=== PATIENT | female | born 1970 | race Caucasian/White ===

== ENCOUNTER 2023-12-19 17:33 | Emergency (ER) | payer MEDICARE, SELFPAY ==
[2023-12-19 17:34] VITALS: BP 190/116
[2023-12-19 18:01] VITALS: BP 151/81
--- NOTE | 2023-12-19 18:53 | ED.GENMED ---
History of Present Illness
<Erica Singer PA-C - Last Filed: 12/20/23 01:44>
General
Chief Complaint: Blood Pressure Problem
Source: patient
Exam Limitations: none
Time Seen by Provider: 12/19/23 18:16
Nursing documentation reviewed up to this point in time: agreed with
Travel History
Have you had any contact with someone who has COVID-19?: No
Do you have any symptoms of coronavirus? Fever > 100 degrees, chills, cough, shortness of breath, sore throat, loss of taste or smell, muscle aches, or headache?: No
History of Present Illness
History of Present Illness:
Patient is a 53-year-old female presenting for evaluation of intermittent headaches and high blood pressure readings at home. Patient states she has had headaches intermittently over the past 2 weeks, located in the occipital region of scalp. Today
- she checked her BP while she was having the headache and noticed an elevated BP reading of 190s/150s and decided to come to the emergency department for evaluation. She states they are worse when she wakes up. These headaches at its worst are an
8 out of 10 in severity, and associated with blurry vision. No associated nausea, vomiting, chest pain, shortness of breath. No recent fever, chills, other viral illness.
Patient states that she has a history of migraines when she was a teenager. She also had a brief episode of frequent migraines following her second COVID vaccine�was briefly followed by neurology and took an antiepileptic.
Patient was diagnosed with pancreatic cancer in 2003�had partial removal of pancreas and splenectomy.
Past History
<Erica Singer PA-C - Last Filed: 12/20/23 01:44>
Past History
ED Past Medical History: Other (pancreatic CA 2004, tail of pancreas removed.full remission)
ED Past Surgical History: None
Social History
Tobacco: Non-smoker
Alcohol: None
Personal: Single
Living: with family
Employment: Retired
Phy Exam
<Erica Singer PA-C - Last Filed: 12/20/23 01:44>
Physical Exam
Physical Exam:
General: In no apparent distress, non-toxic
Vitals: Hypertensive, otherwise vital signs stable, afebrile
HEENT: Atraumatic, normocephalic, no tenderness to temporal region; pupils equal round and reactive to light bilaterally, extraocular muscles intact, no tenderness to TMJ protecting airway
Neck: Full ROM, no tenderness to C-spine or paracervical spinal muscles
Cardio: RRR, heart sounds normal
Lungs: Lungs clear with no wheezing, rales, or rhonchi
Abdomen: Soft, nontender; non distended
Extremities: No evidence of cyanosis or edema; strength 5/5 in upper and lower extremities
Neuro: Alert and oriented, speech normal, no focal neurological deficits, normal finger to nose, CN II-XII intact, sensation intact
Psych: Appropriate affect
Skin: Intact
Course
<Erica Singer PA-C - Last Filed: 12/20/23 01:44>
Orders/Labs/Results
Orders:
Orders
12/19/23 17:36
EKG [Electrocardiogram (*1)] Urgent
Reason for Study: Hypertension, Benign
EKG- Treatment ONCE
12/19/23 19:05
CT Head W/o Iv Contrast Urgent
Comment:
Reason For Exam: headache, htn
12/19/23 19:32
Complete Blood Count/With Diff Urgent
Comprehensive Metabolic Panel Urgent
Abnormal Lab Results
12/19/23
19:32
RBC 4.06 L 10^6/uL
(4.20-5.40)
MCH 31.3 H pg
(27.0-31.0)
Absolute Lymphs (auto) 3.8 H 10^3/uL
(1.2-3.4)
Absolute Monos (auto) 1.1 H 10^3/uL
(0.1-0.6)
Monocytes % 10.4 H %
(1.7-9.3)
Carbon Dioxide 31 H mmol/L
(22-30)
BUN 19 H mg/dl
(7-17)
12/19/23 19:32
12/19/23 19:32
Vital Signs
Initial and Last Documented VS:
Initial Vital Signs
Temp Pulse Resp BP Pulse Ox
98.8 F 52 16 190/116 98
12/19/23 17:34 12/19/23 17:34 12/19/23 17:34 12/19/23 17:34 12/19/23 17:34
Last Documented Vital Signs
Temp Pulse Resp BP Pulse Ox
98.8 F 55 15 156/83 96
12/19/23 17:34 12/19/23 20:15 12/19/23 20:15 12/19/23 20:00 12/19/23 20:00
<Cameron Queen MD - Last Filed: 12/19/23 20:39>
Orders/Labs/Results
Orders:
Orders
12/19/23 17:36
EKG [Electrocardiogram (*1)] Urgent
Reason for Study: Hypertension, Benign
EKG- Treatment ONCE
12/19/23 19:05
CT Head W/o Iv Contrast Urgent
Comment:
Reason For Exam: headache, htn
12/19/23 19:32
Complete Blood Count/With Diff Urgent
Comprehensive Metabolic Panel Urgent
Abnormal Lab Results
12/19/23
19:32
RBC 4.06 L 10^6/uL
(4.20-5.40)
MCH 31.3 H pg
(27.0-31.0)
Absolute Lymphs (auto) 3.8 H 10^3/uL
(1.2-3.4)
Absolute Monos (auto) 1.1 H 10^3/uL
(0.1-0.6)
Monocytes % 10.4 H %
(1.7-9.3)
Carbon Dioxide 31 H mmol/L
(22-30)
BUN 19 H mg/dl
(7-17)
12/19/23 19:32
12/19/23 19:32
Vital Signs
Initial and Last Documented VS:
Initial Vital Signs
Temp Pulse Resp BP Pulse Ox
98.8 F 52 16 190/116 98
12/19/23 17:34 12/19/23 17:34 12/19/23 17:34 12/19/23 17:34 12/19/23 17:34
Last Documented Vital Signs
Temp Pulse Resp BP Pulse Ox
98.8 F 55 15 156/83 96
12/19/23 17:34 12/19/23 20:15 12/19/23 20:15 12/19/23 20:00 12/19/23 20:00
<Erica Singer PA-C - Last Filed: 12/20/23 01:44>
MDM/Problems Addressed
Differential Diagnosis Includes:
migraine headache, tension headache, cluster headache, sinusitis, CVA, brain mass
MDM/Problems Addressed:
Patient is a 53 year old female presenting for evaluation of 2 weeks of intermittent occipital headaches with elevated blood pressure measurement of 190/150 earlier at home. Patient reports occasional blurry vision with headaches. No fever, neck
pain, weakness/ numbness, jaw pain, recent virus. Patient is asymptomatic at this time- denies headache. She is hypertensive on initial triage to 190/116 but on my assessment had BP of 150/70. Physical exam as documented above. No neurologic
deficits on exam. Given history of headache in associated with hypertension - will check CT head. Will check basic labs, EKG.
CBC and CMP without any clinically significant abnormalities. CT shows no acute intracranial process. EKG shows NSR without signs of ischemia.
Patient has remained asymptomatic with most recent blood pressure of 156/83- no indication of hypertensive emergency or need to acutely lower BP in emergency department. Patient stable for discharge with close return precautions. She will follow-up
with PCP and neurologist. All questions answered
Chronic conditions affecting care:
N/A
Acute Exacerbation and/or Progression of Chronic Illness:
Acutely hypertensive
<Erica Singer PA-C - Last Filed: 12/20/23 01:44>
*Radiology
Radiology exam reviewed: preliminary read by ED provider and radiology read reviewed
*Pulse Oximetry
Patient hypoxic: no
*EKG
EKG Intrepretation Date: 12/20/23
Interpretation: normal
Comparison EKG: no comparison EKG present
Heart Rate: 53
Rate: bradycardiac
Rhythm: sinus
Salix: normal axis
Interval: normal interval
QRS Pattern: normal QRS
Ischemia: no ischemia
*Critical Care Note
Total Time (30-74mins, 75-104mins- exclusive of procedures): Not Applicable
Data Reviewed
Review of Other/Old Records Reveals: Radiology Studies
Further Testing Considered But Not Given:
ESR - no pain over temporal arteries, do not suspect temporal arteritis
ED Attending Note
<Erica Singer PA-C - Last Filed: 12/20/23 01:44>
-
Portions of this chart may have been created with voice recognition software.� Occasional wrong word or��sound alike� substitutions may have occurred due to the inherent limitations of voice recognition software.
<Cameron Queen MD - Last Filed: 12/19/23 20:39>
ED Attending Note
Patient seen and examined by attending physician: Yes
ED Attending Note:
HPI: 53-year-old female with history as documented presents for evaluation of headaches and hypertension. Patient has had intermittent headaches for the past few weeks she describes occipital pressure sensation comes and goes. Today patient
decided to check her blood pressure during 1 such episode that was noted to be severely elevated to 190s and she came to the emergency be assessed. No nausea or vomiting. No visual changes or flashes/floaters. No neck pain. No focal weakness
numbness in extremities. She has seen a neurologist in the past for headaches that she had after her COVID-vaccine 2 years ago but has not seen anyone since. At time of assessment patient is headache free.
ROS: Positive for headache; negative for neck pain, fever, chills, nausea, vomiting, vision changes, speech changes, focal weakness or numbness of extremities
Physical exam:
General: Awake, alert, oriented x3; no acute distress
Head: Normocephalic, atraumatic
Eyes: Conjunctiva normal, EOMI, pupils equal round reactive to light bilaterally
Throat: Airway intact, handling secretions
Neck: Trachea midline, supple without meningismus
Lungs: Breathing comfortably no distress
Heart: Regular rate
Neuro: Cranial nerves intact 2 through 12, speech fluid without dysarthria aphasia, no limb ataxia, motor and sensory function intact proximally and distally upper and lower extremities
Skin: no rash
Extremities: Warm and well-perfused
Differential diagnosis: Tension headache, migraine headache, sinus headache, intracranial hemorrhage, brain mass
Medical decision makin-year-old female presents for evaluation of intermittent headaches for the past few weeks. Had a headache earlier today that was associated with significant hypertension which prompted ED visit today. Headache now
resolved. Blood pressure was elevated in triage greatly improved on my assessment but still mildly hypertensive. Physical exam as above. Labs were sent off including CBC and CMP which were unremarkable and EKG showed no concerning abnormalities.
CT head negative for any acute pathology. Patient headache free, blood pressure improved, stable for discharge could be a tension headache or migraine headache. She has seen a neurologist in the past plans to follow-up with them regarding her
intermittent headaches over the past few weeks. Will discuss with her primary regarding blood pressure recheck and monitor blood pressure at home. Spoke about return precautions all questions answered.
Chronic conditions affecting care: N/A
Acute exacerbation or progression of chronic illness: Acutely hypertensive�no signs or symptoms of hypertensive emergency no indication for emergent antihypertensive treatment
History source: Patient
Data reviewed: N/A
Medications/testing considered: Considered prescription for antihypertensive such as lisinopril or amlodipine however patient reports that when she does not have her headache her blood pressure essentially normalizes and concern that starting
antihypertensive could lead to adverse effects�decided in favor of close monitoring of blood pressure outpatient and following up with PCP to decide if adding antihypertensive appropriate
Social determinants of health: N/A
Discussion with other providers: N/A
Discharge Plan
Departure
Patient Disposition: Home (Routine Discharge)
Date of Disposition: 12/19/23
Time of Disposition: 20:23
Patient with high blood pressure during this ER visit?: Yes
Condition: Good
Covid-19: Not Applicable
Discharge Problem:
Headache, Hypertension
Instructions: High Blood Pressure (DC), Headache, Adult (DC)
Prescriptions:
No Action
multivitamin Tablet
1 tab PO DAILY
oxybutynin chloride 10 mg Tablet Extended Release 24hr
10 mg PO DAILY
tamsulosin 0.4 mg Capsule
0.4 mg PO HS
Excedrin Extra Strength 250-250-65 mg Tablet
1 tab PO Q6H PRN (Reason: pain)
acetaminophen 500 mg Capsule
1,000 mg PO Q6H PRN (Reason: pain)
melatonin 5 mg Tablet
5 mg PO HS
Elderberry
1 tab PO DAILY
Vitamin C
1 tab PO DAILY
Vitamin D3
1 tab PO DAILY
mecobalamin (vitamin B12)
1 tab PO DAILY
Referrals:
Greg Bourgeois, [Family Provider] -
Activity Restrictions/Additional Instructions:
- Return to the emergency department with any severe headache, high fevers, severe neck pain, intractable vomiting, confusion/change in mental status, weakness/numbness, changes in vision, worsening current symptoms, or any other concerns
-You can take ibuprofen/Tylenol as needed for headache
-As discussed�you should follow-up with your neurologist for further evaluation/treatment
Interventions
Interventions:
*Risk Screen - Suicide Last Done: 12/19/23 17:34
*General Assessment Last Done: 12/19/23 17:34
*Neglect/Abuse Screening Last Done: 12/19/23 17:34
ED- Fall Risk Assessment Last Done: 12/19/23 18:02
*ED COVID-19 Vaccine History Last Done: 12/19/23 17:34
*Nursing Disposition Last Done: 12/19/23 20:28
ED- Cardiac Assessment Last Done: 12/19/23 18:02
ED- Neurological Assessment Last Done: 12/19/23 18:02
ED- Pulmonary Assessment Last Done: 12/19/23 18:02
Discharge Date and Time
Discharge Date/Time: 12/19/23 20:31
[2023-12-19 19:14] VITALS: BP 139/79
[2023-12-19 19:37] VITALS: BP 165/100
[2023-12-19 19:43] LABS: % Basophils 0.7 % (0-2); % Eosinophils 1.5 % (0-6); % Immature Granulocytes 0.3 % (0-0.5); % Lymphocytes 35.7 % (20.5-51.1); % Monocytes 10.4 % (1.7-9.3); % Neutrophils 51.4 % (42.2-75.2); Absolute Basophils 0.1 10^3/uL (0-0.2); Absolute Eosinophils 0.2 10^3/uL (0-0.7); Absolute Lymphocytes 3.8 10^3/uL (1.2-3.4); Absolute Monocytes 1.1 10^3/uL (0.1-0.6); Absolute Neutrophils 5.5 10^3/uL (1.4-6.5); Hematocrit 38.2 % (37.0-47.0); Hemoglobin 12.7 g/dL (12.0-16.0); Mean Corp Hgb Conc. 33.2 g/dL (33.0-37.0); Mean Corpuscular Hgb 31.3 pg (27.0-31.0); Mean Corpuscular Volume 94.1 fL (81.0-99.0); Nucleated Red Blood Cells % 0 %; Platelet Count 323 10^3/uL (130-400); Red Blood Cell Count 4.06 10^6/uL (4.20-5.40); White Blood Cell Count 10.8 10^3/uL (4.8-10.8)
[2023-12-19 20:00] VITALS: BP 156/83
[2023-12-19 20:09] LABS: ALT (SGPT) 20 U/L (0-35); AST (SGOT) 27 U/L (14-36); Albumin 3.8 g/dl (3.5-5.0); Alkaline Phosphatase 114 U/L (38-126); Blood Urea Nitrogen 19 mg/dl (7-17); Calcium 9.3 mg/dl (8.4-10.2); Carbon Dioxide 31 mmol/L (22-30); Chloride 102 mmol/L (98-107); Glucose 97 mg/dl (70-99); Potassium 4.2 mmol/L (3.5-5.1); Sodium 137 mmol/L (135-145); Total Bilirubin 1.1 mg/dl (0.2-1.3); Total Protein 6.9 g/dl (6.3-8.2); eGFR > 60.00
== END 2023-12-19 20:31 | disposition home or self-care (01) ==
LOC: EMR 17:33
PROVIDERS: Physician Assistant; EMERGENCY PHYSICIAN Emergency Medicine; FAMILY PHYSICIAN Family Medicine
DX: R51.9 Headache, unspecified (principal); I10 Essential (primary) hypertension
CPT/HCPCS: 99285; 70450; 80053; 85025; 93005

== ENCOUNTER 2024-01-13 21:20 | Emergency (ER) | payer MEDICARE, OTHER, SELFPAY ==
[2024-01-13 21:22] VITALS: BP 154/105
[2024-01-13 21:44] VITALS: BP 149/80
[2024-01-13 21:45] VITALS: BP 149/80
[2024-01-13 22:00] VITALS: BP 134/114
--- NOTE | 2024-01-13 23:23 | ED.GENMED ---
History of Present Illness
General
Chief Complaint: Medication Reaction
Source: patient and spouse
Exam Limitations: none
Time Seen by Provider: 01/13/24 22:17
Nursing documentation reviewed up to this point in time: agreed with
Travel History
Have you had any contact with someone who has COVID-19?: No
Do you have any symptoms of coronavirus? Fever > 100 degrees, chills, cough, shortness of breath, sore throat, loss of taste or smell, muscle aches, or headache?: No
History of Present Illness
History of Present Illness:
53-year-old female with past medical history of high blood pressure presenting to the emergency department after accidentally taking her dogs medication that was next to her pills the night of the medication was Apoquel which is a Obinna 2 inhibitor.
She immediately started to vomit the medication deliberately to see if she could vomited up. She then came to the ER for assessment to ensure that there was no concern of consuming this medication. She otherwise feels well at this point
Past History
Past History
ED Past Medical History: Other (pancreatic CA 2004, tail of pancreas removed.full remission)
ED Past Surgical History: None
Social History
Tobacco: Non-smoker
Alcohol: None
Personal: Single
Living: with family
Employment: Retired
Review of Systems
Review of Systems
Allergies reviewed?: Yes
All Other Systems: ROS reviewed and negative except as documented in HPI and ROS
Phy Exam
Physical Exam
Physical Exam:
GENERAL: Alert , in no apparent distress
EYE: pupils equal and reactive
NECK: Supple, no significant adenopathy.
ENT: o/p clr, mmm.
CARDIAC: Regular rate and rhythm .
LUNGS: Clear breath sounds bilaterally, no acute respiratory distress, no wheezes/rales/rhonchi
ABDOMEN: Soft, without focal tenderness, no r/g, no cvat
NEUROLOGICAL: Alert and oriented, no focal neuro deficits
SKIN: Warm and dry, skin intact.
MUSCULOSKELETAL: No edema, well perfused.
PSYCH: Normal and appropriate interaction.
Course
Orders/Labs/Results
Orders:
Orders
01/13/24 22:41
EKG [Electrocardiogram (*1)] Urgent
Reason for Study: Other
Other Reason for Exam: medication reaction
EKG- Treatment ONCE
Vital Signs
Initial and Last Documented VS:
Initial Vital Signs
Temp Pulse Resp BP Pulse Ox
98.3 F 70 16 154/105 98
01/13/24 21:22 01/13/24 21:22 01/13/24 21:22 01/13/24 21:22 01/13/24 21:22
Last Documented Vital Signs
Temp Pulse Resp BP Pulse Ox
98.3 F 55 16 134/114 96
01/13/24 21:22 01/13/24 21:45 01/13/24 21:22 01/13/24 22:00 01/13/24 22:30
MDM/Problems Addressed
MDM/Problems Addressed:
53-year-old female presenting to the emergency department after taking her dogs Apoquel. She took this inadvertently. She otherwise feels well at this point did vomit multiple times after the fact deliberately. Here vital signs are normal EKG
normal Case discussed with poison control without emergent concerns and stable for outpatient management return precautions given.
*Critical Care Note
Total Time (30-74mins, 75-104mins- exclusive of procedures): Not Applicable
ED Attending Note
-
Portions of this chart may have been created with voice recognition software.� Occasional wrong word or��sound alike� substitutions may have occurred due to the inherent limitations of voice recognition software.
Discharge Plan
Departure
Patient Disposition: Home (Routine Discharge)
Date of Disposition: 01/13/24
Time of Disposition: 23:45
Patient with high blood pressure during this ER visit?: No
Condition: Good
Covid-19: Not Applicable
Discharge Problem:
Drug ingestion, accidental
Instructions: BLOOD PRESSURE
Prescriptions:
No Action
multivitamin Tablet
1 tab PO DAILY
oxybutynin chloride 10 mg Tablet Extended Release 24hr
10 mg PO DAILY
tamsulosin 0.4 mg Capsule
0.4 mg PO HS
Excedrin Extra Strength 250-250-65 mg Tablet
1 tab PO Q6H PRN (Reason: pain)
acetaminophen 500 mg Capsule
1,000 mg PO Q6H PRN (Reason: pain)
melatonin 5 mg Tablet
5 mg PO HS
Elderberry
1 tab PO DAILY
Vitamin C
1 tab PO DAILY
Vitamin D3
1 tab PO DAILY
mecobalamin (vitamin B12)
1 tab PO DAILY
Referrals:
Greg Bourgeois, [Family Provider] -
Activity Restrictions/Additional Instructions:
You came to the emergency department today after taking your dog some medication inadvertently. There is no signs of any emergent process secondary to this you are safe to go home. Return to the emergency department for any worsening, new or
concerning symptoms.
Interventions
Interventions:
*Risk Screen - Suicide Last Done: 01/13/24 21:22
*General Assessment Last Done: 01/13/24 21:43
*Neglect/Abuse Screening Last Done: 01/13/24 21:22
*ED COVID-19 Vaccine History Last Done: 01/13/24 21:43
ED-Skin Assessment Last Done: 01/13/24 21:42
ED- Pulmonary Assessment Last Done: 01/13/24 21:42
[2024-01-13 23:52] VITALS: BP 158/96
[2024-01-13 23:55] VITALS: BP 158/96
== END 2024-01-13 23:56 | disposition home or self-care (01) ==
LOC: EMR 21:20
PROVIDERS: EMERGENCY PHYSICIAN Emergency Medicine; FAMILY PHYSICIAN Family Medicine
DX: T50.901A Poisoning by unspecified drugs, medicaments and biological substances, accidental (unintentional), initial encounter (principal); X58.XXXA Exposure to other specified factors, initial encounter; Z85.07 Personal history of malignant neoplasm of pancreas
CPT/HCPCS: 99283; 93005

== ENCOUNTER → 2024-02-27 11:30 | Outpatient (REF) | payer MEDICARE, OTHER, SELFPAY | LOC: HWRAD 11:30 | PROVIDERS: ATTENDING PHYSICIAN Family Medicine | DX: M25.511 Pain in right shoulder (principal) | CPT/HCPCS: 73030 ==